=== PATIENT | female | born 1980 | race Caucasian/White ===

== ENCOUNTER 2021-04-14 17:25 | Emergency (ER) | payer MEDICAID ==
[~2021-04-14] VITALS: Ht 160 cm; Wt 82.0 kg
[2021-04-14] MEDS ORDERED: ONDANSETRON HCL 4MG/2ML INJ IV STA (18:24)
[2021-04-14] MEDS ORDERED: KETOROLAC 30MG/ML VIAL IV STA (18:24)
[2021-04-14] MEDS ORDERED: SODIUM CHLORIDE 0.9% 1,000 ML IV ONE (18:30)
[2021-04-14 18:56] LABS: BASOPHILS % 0.2 % (0.0-2.0); EOSINOPHILS % 0.7 % (0.0-5.0); HEMATOCRIT. 37.5 % (36.0-48.0); LYMPHOCYTES % 14.3 % (20.0-50.0); MEAN CORPUSCULAR HEMOGLOBIN 31.2 pg (28.0-32.0); MEAN PLATELET VOLUME 10.4 fl (7.4-10.4); MONOCYTES % 7.1 % (2.0-8.0); NEUTROPHILS % 77.7 % (40.0-76.0); PLATELET 187 x1000/uL (130-400); RED BLOOD CELL COUNT 4.17 mill/uL (4.2-5.4); RED CELL DISTRIBUTION WIDTH 13.5 % (11.6-14.6)
[2021-04-14 18:58] LABS: CHLORIDE 108 mEq/L (98-107)
[2021-04-14 19:26] LABS: CLARITY URINE CLOUDY (CLEAR); COLOR URINE DARK YELLOW (YELLOW); KETONES URINE 1+ (NEGATIVE); LEUKOCYTE ESTERASE URINE 1+ (NEGATIVE); NITRITE URINE NEGATIVE (NEGATIVE); OCCULT BLOOD URINE NEGATIVE (NEGATIVE); PROTEIN URINE TRACE (NEGATIVE); SPECIFIC GRAVITY URINE 1.031 (1.005-1.030)
[2021-04-14] MEDS ORDERED: CEPH500C2 MT (19:52)
[2021-04-14 19:57] LABS: HCG SCREEN NEGATIVE
[2021-04-14 20:44] VITALS: BP 127/66
== END 2021-04-14 20:49 | disposition home or self-care (01) ==
LOC: ER 17:25
DX: N30.00 Acute cystitis without hematuria (principal)
CPT/HCPCS: 36415; 80053; 81003; 83690; 84703; 85025; 93005; 96374; 96375; 99284; J1885; J2405; J7030

== ENCOUNTER 2021-10-05 01:53 | Emergency (ER) | payer MEDICAID ==
[~2021-10-05] VITALS: Ht 162.6 cm; Wt 68.0 kg
[~2021-10-05 01:53] MED LIST: CEPH500C2 MT
[2021-10-05] MEDS ORDERED: BACITRACIN ZINC OINT UDPKT TOP ONE (02:30)
[2021-10-05] MEDS ORDERED: ACETAMINOPHEN 325MG TABLET PO ONE (02:30)
[2021-10-05] MEDS ORDERED: TETANUS, DIPHTHERIA, PERTUSSIS VAC/PF 0.5ML (>10YR OLD) IM ONE (02:30)
[2021-10-05] MEDS ORDERED: LIDOCAINE HCL/EPINEPHRINE 1%-EPI 1:100,000 20 ML VIAL INFIL ONE (02:30)
[2021-10-05] MEDS ORDERED: LIDOCAINE HCL/EPINEPHRINE 1%-EPI 1:100,000 10 ML VIAL INFIL SCH (03:45)
[2021-10-05] MEDS ORDERED: TOPUD MT (04:45)
[2021-10-05 04:55] VITALS: BP 145/56
== END 2021-10-05 04:55 | disposition home or self-care (01) ==
LOC: ER 01:53
DX: S01.81XA Laceration without foreign body of other part of head, initial encounter (principal); K76.0 Fatty (change of) liver, not elsewhere classified; X58.XXXA Exposure to other specified factors, initial encounter; Y93.89 Activity, other specified; Y92.018 Other place in single-family (private) house as the place of occurrence of the external cause
CPT/HCPCS: 12014; 70450; 70486; 81025; 90471; 90715; 93005; 99284; J3490; Z7610

== ENCOUNTER 2023-04-26 02:27 | Emergency (ER) | payer MEDICAID ==
[~2023-04-26] VITALS: Ht 154.9 cm; Wt 79.0 kg
[~2023-04-26 02:27] MED LIST changes: +TOPUD MT
[2023-04-26 03:17] VITALS: BP 137/86; PULSE 96; RESP 16; TEMP 100; O2SAT 95
[2023-04-26] MEDS ORDERED: ACETAMINOPHEN 325MG TABLET PO STA (05:20)
[2023-04-26] MEDS ORDERED: AMOX-494 MT (06:20)
[2023-04-26] MEDS ORDERED: BENZ100C86 MT (06:20)
[2023-04-26] MEDS ORDERED: IBUPROFEN 600MG TABLET PO ONE (06:45)
== END 2023-04-26 07:41 | disposition home or self-care (01) ==
LOC: ER 02:27
DX: B34.9 Viral infection, unspecified (principal); K08.89 Other specified disorders of teeth and supporting structures
CPT/HCPCS: 71045; 99283

== ENCOUNTER 2023-09-21 00:30 | Emergency (ER) | payer MEDICAID ==
[~2023-09-21] VITALS: Ht 165.1 cm; Wt 81.0 kg
[~2023-09-21 00:30] MED LIST changes: +AMOX-494 MT; +BENZ100C86 MT
[2023-09-21 01:01] VITALS: BP 142/83; PULSE 77; RESP 18; O2SAT 99
[2023-09-21] MEDS ORDERED: ACETAMINOPHEN 325MG TABLET PO ONE (01:45)
[2023-09-21 02:39] VITALS: TEMP 99.2
== END 2023-09-21 03:41 | disposition home or self-care (01) ==
LOC: ER 00:58
DX: J02.9 Acute pharyngitis, unspecified (principal); R05.9 Cough, unspecified; Z32.01 Encounter for pregnancy test, result positive
CPT/HCPCS: 71045; 81025; 87430; 99284